=== PATIENT | female | born 1975 | race Caucasian/White ===

== ENCOUNTER 2019-10-20 13:12 | Emergency (ER) | payer MEDICAID ==
--- NOTE | 2019-10-20 13:14 | ED Physician Documentation ---
PD HPI LOWER EXT INJURY - Stated complaint Stated Complaint: LT SMALL TOE INJ - History obtained from History obtained from: Patient - History of Present Illness PD HPI LOW EXT INJURY LOCATION: Left, Toe (little toe) Type of injury: Blunt / blow (she struck toe on the curb walking and it bent abruptly.) Where injury occurred: Street Timing - onset: Today Timing - details: Abrupt onset, Still present Review of Systems Skin: denies: Abrasion (s), Laceration (s) Musculoskeletal: reports: Other (left little toe pain and is bent sideways slight angle.) Neurologic: denies: Focal weakness, Numbness PD PAST MEDICAL HISTORY - Past Medical History Past Medical History: No - Allergies Allergies/Adverse Reactions: Allergies Allergy/AdvReac Type Severity Reaction Status Date / Time No Known Drug Allergies Allergy Verified 10/20/19 13:17 PD ED PE NORMAL - Vitals Vital signs reviewed: Yes - General General: Alert and oriented X 3, No acute distress, Well developed/nourished - Derm Derm: Normal color, Warm and dry - Extremities Extremities: Other (left little toe with tenderness and is skewed laterally at the end of proximal phalanx area. No lac. Normal color and cap refill at tip. ) Results - Vitals Vitals: Vital Signs - 24 hr 10/20/19 10/20/19 13:14 14:14 Temperature 37.2 C 36.6 C Heart Rate 60 65 Respiratory 18 16 Rate Blood Pressure 96/58 L 101/65 O2 Saturation 99 99 Oxygen O2 Source Room air - Rads (name of study) left toe Radiology: Prelim report reviewed (fracture distal end of proximal phalanx. ), See rad report PD MEDICAL DECISION MAKING - ED course Complexity details: considered differential (little toe fracture - owen tape and firm soled shoe. Given expected timeline of improvement. ), d/w patient Departure - Departure Disposition: 01 Home, Self Care Clinical Impression: Toe fracture, left Qualifiers: Encounter type: initial encounter Toe: lesser toe Fracture type: closed Phalanx: proximal Fracture alignment: nondisplaced Qualified Code(s): S92.515A - Nondisplaced fracture of proximal phalanx of left lesser toe(s), initial encounter for closed fracture Condition: Stable Record reviewed to determine appropriate education?: Yes Instructions: ED Fx Toe Closed Comments: Owen tape for anchor tape the toe to reduce the motion and tilt. Firm soled shoe to reduce flexion and movement on the toe. Tylenol or ibuprofen or naproxen as needed for pains. Progress activity as tolerated but likely will not be doing too vigorous walking or activity for 1 to 2 weeks and will take about a month to fully heal. Discharge Date/Time: 10/20/19 14:15
--- NOTE | 2019-10-20 13:59 | XRAY Report ---
PROCEDURE: Toe(s) LT INDICATIONS: little toe injury/crooked TECHNIQUE: 3 views of the fifth toe(s) acquired. COMPARISON: None FINDINGS: Bones: There is a mildly displaced mid and distal fracture through the proximal fifth phalanx. Fractu re lucency is noted to extend to the margin of the articular surface at the PIP joint. No suspicious bony lesions. Soft tissues: No suspicious soft tissue densities. IMPRESSION: Mildly displaced this proximal phalanx fracture. Reviewed by: Franchesca Quinn MD on 10/20/2019 1:58 PM PDT Approved by: Franchesca Quinn MD on 10/20/2019 1:58 PM PDT Station ID: [id number]
[2019-10-20 14:15] VITALS: BP 101/65
== END 2019-10-20 14:15 | disposition home or self-care (01) ==
LOC: ED 13:12
DX: S92.512A Displaced fracture of proximal phalanx of left lesser toe(s), initial encounter for closed fracture (principal); W22.09XA Striking against other stationary object, initial encounter; Y93.01 Activity, walking, marching and hiking; Y92.89 Other specified places as the place of occurrence of the external cause
CPT/HCPCS: 73660; 99282; 99283